=== PATIENT | female | born 1995 | race Caucasian/White ===

== ENCOUNTER 2024-10-03 15:27 | Outpatient (CLI) | payer OTHER, SELFPAY ==
[2024-10-03 22:19] LABS: Bacterial Vaginosis* Negative (Negative); Candida glab/krus NOT DETECTED (No Detected)
[2024-10-03 22:50] LABS: Chlamydia DNA Amplified* NOT DETECTED (No Detected); GC DNA Amplified* NOT DETECTED (No Detected)
[2024-10-06 00:11] LABS: HPV Source Cervix
[2024-10-09 12:28] LABS: Pap Test Digital Imaging Done
== END 2024-10-03 15:28 | disposition home or self-care (01) ==
PROVIDERS: PCP Family Medicine; Visit Provider Registered Nurse
DX: Z11.3 Encounter for screening for infections with a predominantly sexual mode of transmission (principal); Z12.4 Encounter for screening for malignant neoplasm of cervix; Z11.51 Encounter for screening for human papillomavirus (HPV)
CPT/HCPCS: 80061; 81513; 86592; 86703; 86803; 87340; 87481; 87491; 87591; 87624; 87625; 87661; 88141; 88142; 88175